=== PATIENT | female | born 1980 | race American Indian/Alaskan Native ===

== ENCOUNTER 2018-06-09 00:27 | Inpatient (IN) | payer MEDICAID ==
[2018-06-09] MEDS ORDERED: LACTATED RINGERS 1,000 ML ONE (02:13)
[2018-06-09] MEDS ORDERED: APRESOLINE IV ONE ×3 (02:30→04:05)
[2018-06-09] MEDS ORDERED: MAGNESIUM SULFATE 4GM/100ML 4 GM/100 ML BAG IV ONE (02:45)
[2018-06-09] MEDS ORDERED: NORMODYNE PO SCH (03:00)
[2018-06-09] MEDS: CELESTONE SOLUSPAN IM SCH (03:41)
--- NOTE | 2018-06-09 03:43 | Ultrasound Report ---
FINAL REPORT PROCEDURE: US OB BPP WO NON-STRESS TECHNIQUE: Sonographic evaluation for breathing, movement, tone, and amniotic flui d volume was performed. CPT 47571 HISTORY: well being COMPARISON: No prior studies are available for comparison. FINDINGS: Amniotic fluid volume: Normal-score 2. At least one vertical pocket > 2 cm or more in vertical axi s. breathing: Normal-score 2. movement: Normal-score 2. tone: Normal. Score: 8 of 8. IMPRESSION: Normal biophysical profile.
--- NOTE | 2018-06-09 03:45 | Ultrasound Report ---
FINAL REPORT PROCEDURE: US OB FOLLOW UP TECHNIQUE: Real-time limited sonographic examination was performed for evaluation of size, pos ition, heartbeat, fluid volume for each fetus with image documentation (1 or more fetuses). CPT 7681 5 HISTORY: STEVAN, presentation, gestational age COMPARISON: No prior studies are available for comparison. FINDINGS: MATERNAL Uterus: Within normal limits . Internal Os: Closed . FETUS IUP: Single living intrauterine . Position: Vertex. Placental position: Anterior, without previa . Amniotic fluid volume: Normal . Heart rate and rhythm: 143 BPM, Regular . anatomic survey: Not performed on this study. MEASUREMENTS BPD: 8.9 centimeter. HC: 30.9 centimeter. AC: 30.2 centimeter. FL: 6.6 centimeter. Mean Gestational Age (composite criteria): 34 weeks 5 days. Ratio biometry: Normal . Estimated Weight: 2418 grams. Interval growth: Appropriate . Estimated Due Date (earliest scan): 07/09/2018. IMPRESSION: 1. Single living intrauterine gestation at approximately 34 weeks 5 days. 2. EDC by US 07/09/2018.
--- NOTE | 2018-06-09 03:59 | History and Physical Report ---
History of Present Illness Date of examination: 06/09/18 Date of admission: 06/09/18 03:03 Chief complaint: Contractions History of present illness: 37 year old presented to L&D at 35 5/7 weeks complaining of contractions. While she was in triage, her BP was noted to be markedly elevated and she was noted to have irregular uterine contractions which palpate mild. Patient denies leaking of fluid or vaginal bleeding. Patient reports active movement. Patient states she receives care at [facility] and records are not available here in L&D. Will request records as soon as the office opens today. LMP uncertain. EDC 07/09/2018 per patient report (patient states this EDC is based on a first trimester US). EDC by US done in triage today is 07/16/18 (34 weeks, 5 days gestation). Patient states her has been complicated by AMA, chronic hypertension (for which she takes Labetalol 300 mg po BID, last dose at 9:45 PM) and superimposed preeclampsia. She states she sees [facility] and has been on LDA. Patient states she has had no other problems during this . She states she has a history of 2 previous vaginal deliveries (one at 37 weeks gestation and one at 36 weeks gestation, states she was induced at 36 weeks for severe preeclampsia). She states her daughter at 4 years of age from a seizure disorder. Past History Past Medical History: hypertension Past Surgical History: no surgical history [employer] History: denies: chlamydia, gonorrhea, hepatitis B, hepatitis C, herpes, HIV, syphilis Family/Genetic History: none Social history: lives with family, full code. denies: smoking, alcohol abuse, prescription drug abuse, IV drug use - Obstetrical History Expected Date of Delivery: 07/09/18 Actual Gestation: 35 Week(s) 5 Day(s) : 3 Para: 2 Hx # Term Pregnancies: 1 Number of Pregnancies: 2 Spontaneous Abortions: 0 Induced : 0 Number of Living Children: 1 Medications and Allergies Allergies Allergy/AdvReac Type Severity Reaction Status Date / Time chocolate flavor AdvReac Rash Verified 03/09/13 15:36 tomato [Tomato] AdvReac Swelling Verified 03/09/13 15:36 Home Medications Medication Instructions Recorded Confirmed Last Taken Type No Known Home Medications [No 11/18/13 11/18/13 Unknown History Reported Home Medications] Active Meds: Active Medications Betamethasone Acet/Betameth SodPhos (Celestone Soluspan) 12 mg IM Q24H FAHEEM Stop: 06/10/18 03:16 Last Admin: 06/09/18 03:41 Dose: 12 mg Documented by: Magnesium Sulfate (Magnesium Sulfate 40gm/1000ml) 40 gm in 1,000 mls @ 50 mls/hr IV DIRECT FAHEEM Lactated Ringer's (Lactated Ringers) 1,000 mls @ 125 mls/hr IV DIRECT FAHEEM Labetalol HCl (Normodyne) 300 mg PO BID [facility] Review of Systems Constitutional: no fatigue, no chronic headaches Eyes: no blurred vision Ears, nose, mouth and throat: no headache Cardiovascular: no chest pain, no edema, no lightheadedness, no shortness of breath Respiratory: no cough Gastrointestinal: no abdominal pain, no nausea, no vomiting Genitourinary: contractions, no genital sores - Vital Signs Vital signs: Vital Signs Pulse BP 71 134/74 06/09/18 00:58 06/09/18 00:58 Temp Pulse Resp BP Pulse Ox 98.1 F 81 169/96 06/09/18 02:05 06/09/18 03:46 06/09/18 03:46 - Physical Exam Cardiovascular: Regular rate Lungs: Positive: Clear to auscultation Abdomen: Positive: normal appearance, soft. Negative: distention, tenderness, guarding, rigidity Genitourinary (Female): Positive: normal external genitalia Vagina: Positive: normal moisture Cervix: Positive: other (Cervix FT/thick/posterior) Uterus: Positive: enlarged. Negative: tender Extremities: Positive: normal. Negative: tenderness, edema - Obstetrical FHR: category 2 Uterine Contraction Monitor Mode: External Cervical Dilatation: 0.5 Cervical Effacement Percentage: 10 station: -4 Uterine Contraction Pattern: Irregular Uterine Contraction Intensity: Mild Results All other labs normal. Assessment and Plan A: at 35 5/7 weeks gestation. contractions. Severe preeclampsia superimposed on chronic hypertension. Advanced maternal age. P: Admit. IV Hydralazine. Continue Labetalol 300 mg po BID. Magnesium Sulfate. Preeclamptic labs. Celestone IM. [facility] consult. US for BPP/STEVAN. Continous EFM. Consulted with Dr. Padilla re: this patient, elevated blood pressures, severe preeclampsia and interventions ordered/taken. Dr. Padilla states he agrees with ab ove plan.
[2018-06-09] MEDS: MAGNESIUM SULFATE 40GM/1000ML 40 GM/1,000 ML BAG IV SCH (05:04)
[2018-06-09 05:17] LABS: Bilirubin,Urine NEG (Negative); Blood,Urine NEG (Negative); Color,Urine Yellow (Yellow)
[2018-06-09 05:43] LABS: Alanine Aminotransferase 9 units/L (7-56); Albumin 3.3 g/dL (3.9-5); BUN/Creatinine Ratio 8; Blood Urea Nitrogen 5 mg/dL (7-17); Calcium 10.8 mg/dL (8.4-10.2); Hemolysis Index 20; Uric Acid 4.4 mg/dL (3.5-7.6)
[2018-06-09] MEDS: LACTATED RINGERS 1,000 ML IV SCH ×2 (06:15→19:15)
[2018-06-09 07:57] LABS: Basophils % (Auto) 0.5 % (0.0-1.8); Eosinophils % (Auto) 0.1 % (0.0-4.3); Hematocrit 28.9 % (30.3-42.9); Hemoglobin 9.7 gm/dl (10.1-14.3); Lymphocytes # (Auto) 0.9 K/mm3 (1.2-5.4); Lymphocytes % (Auto) 12.3 % (13.4-35.0); Mean Corpuscular HGB Conc 34 % (30-34); Mean Corpuscular Volume 81 fl (79-97); Monocytes # (Auto) 0.2 K/mm3 (0.0-0.8); Platelet Count 261 K/mm3 (140-440); Red Blood Count 3.59 M/mm3 (3.65-5.03); Red Cell Distribution Width 12.9 % (13.2-15.2)
--- NOTE | 2018-06-09 09:26 | Progress Note ---
Assessment and Plan - Patient Problems (1) 35 weeks gestation of Current Visit: Yes Status: Acute (2) Pre-eclampsia superimposed on chronic hypertension Current Visit: Yes Status: Acute Plan to address problem: Continue magnesium sulafte. Monitor Mg levels, urine output and DTRs. Monitor BP. Continue labetolol BID. 24-hr urine in progress. Next celestone dose tomorrow at 3 AM. Continue monitoring. [facility] and NICU consults. Will deliver if BP becomes unstable or for compromise. (3) contractions Current Visit: Yes Status: Acute Subjective - Subjective Date of service: 06/09/18 Principal diagnosis: SIUP at 35 weeks gestation with superimposed pre-eclampsia. Interval history: Patient is a 37 year old at 35 weeks gestation who presented to triage early this AM complaining of having irregular contractions. She denied any fluid leakage or bleeding. She reported good movement. Her BP was found to be elevated in the 160's/100's. She has a history of chronic HTN and has been co- managed with [facility]. She has been on labetolol 300 mg PO BID. She denied any headaches, visual changes or RUQ pain. She received IV hydralazine for BP control. Magnesium sulfate was started and celestone dose #1 given for FLM. tracing is CAT 1. Sonogram showed the baby to be vertex, BPP 8/8. Objective - Vital Signs Vital Signs: Vital Signs - 12hr 06/09/18 06/09/18 06/09/18 00:58 02:05 02:23 Temperature 98.1 F Pulse Rate 71 65 Respiratory Rate Blood Pressure 134/74 190/106 Blood Pressure [Right] O2 Sat by Pulse Oximetry 06/09/18 06/09/18 06/09/18 02:24 02:34 03:00 Temperature Pulse Rate 68 69 73 Respiratory Rate Blood Pressure 179/93 177/106 141/94 Blood Pressure [Right] O2 Sat by Pulse Oximetry 06/09/18 06/09/18 06/09/18 03:13 03:15 03:31 Temperature Pulse Rate 57 L 71 Respiratory Rate Blood Pressure 176/101 176/101 189/106 Blood Pressure [Right] O2 Sat by Pulse Oximetry 06/09/18 06/09/18 06/09/18 03:46 04:34 04:42 Temperature 98.2 F Pulse Rate 81 82 Respiratory 18 Rate Blood Pressure 169/96 138/90 Blood Pressure [Right] O2 Sat by Pulse Oximetry 06/09/18 06/09/18 06/09/18 05:48 06:02 06:17 Temperature Pulse Rate 74 75 78 Respiratory Rate Blood Pressure 117/61 117/63 113/60 Blood Pressure [Right] O2 Sat by Pulse Oximetry 06/09/18 06/09/18 06/09/18 06:32 06:47 07:02 Temperature Pulse Rate 76 75 76 Respiratory Rate Blood Pressure 107/54 108/57 103/56 Blood Pressure [Right] O2 Sat by Pulse Oximetry 06/09/18 06/09/18 06/09/18 07:17 07:19 07:20 Temperature 97.8 F Pulse Rate 83 85 82 Respiratory 18 Rate Blood Pressure 117/72 Blood Pressure 117/72 [Right] O2 Sat by Pulse 97 97 Oximetry 06/09/18 06/09/18 06/09/18 07:24 07:30 07:32 Temperature Pulse Rate 83 82 82 Respiratory Rate Blood Pressure 117/63 Blood Pressure [Right] O2 Sat by Pulse 97 96 Oximetry 06/09/18 06/09/18 06/09/18 07:34 07:37 07:39 Temperature Pulse Rate 85 83 84 Respiratory Rate Blood Pressure Blood Pressure [Right] O2 Sat by Pulse 96 94 96 Oximetry 06/09/18 06/09/18 06/09/18 07:44 07:47 07:49 Temperature Pulse Rate 83 81 84 Respiratory Rate Blood Pressure 112/61 Blood Pressure [Right] O2 Sat by Pulse 97 97 Oximetry 06/09/18 06/09/18 06/09/18 07:54 07:59 08:02 Temperature Pulse Rate 79 79 77 Respiratory Rate Blood Pressure 124/74 Blood Pressure [Right] O2 Sat by Pulse 98 96 Oximetry 06/09/18 06/09/18 06/09/18 08:04 08:10 08:17 Temperature Pulse Rate 84 82 79 Respiratory Rate Blood Pressure 124/74 Blood Pressure [Right] O2 Sat by Pulse 95 98 Oximetry 06/09/18 06/09/18 06/09/18 08:32 08:37 08:42 Temperature Pulse Rate 72 68 80 Respiratory Rate Blood Pressure 115/63 Blood Pressure [Right] O2 Sat by Pulse 97 97 Oximetry 06/09/18 06/09/18 06/09/18 08:47 08:52 08:54 Temperature Pulse Rate 76 76 83 Respiratory Rate Blood Pressure 129/73 Blood Pressure [Right] O2 Sat by Pulse 95 97 79 L Oximetry 06/09/18 06/09/18 06/09/18 08:57 08:59 09:02 Temperature Pulse Rate 73 76 80 Respiratory Rate Blood Pressure Blood Pressure [Right] O2 Sat by Pulse 94 94 95 Oximetry 06/09/18 06/09/18 06/09/18 09:03 09:06 09:10 Temperature Pulse Rate 78 80 80 Respiratory Rate Blood Pressure 119/64 Blood Pressure [Right] O2 Sat by Pulse 94 94 Oximetry 06/09/18 06/09/18 06/09/18 09:12 09:17 09:19 Temperature Pulse Rate 84 80 78 Respiratory Rate Blood Pressure 119/65 Blood Pressure [Right] O2 Sat by Pulse 93 93 94 Oximetry - Exam Cardiovascular: Normal S1, Normal S2 Lungs: Clear to auscultation Vulva: both: normal FHR: category 1 Uterine Contraction Monitor Mode: External Uterine Contraction Pattern: Irregular Uterine Contraction Intensity: Mild Deep Tendon Reflex Grade: Normal +2 - Labs Labs: Abnormal Labs 06/09/18 06/09/18 06/09/18 05:00 07:36 07:36 RBC 3.59 L Hgb 9.7 L Hct 28.9 L MCH 27 L RDW 12.9 L Lymph % (Auto) 12.3 L Lymph # 0.9 L Seg Neutrophils % 84.1 H Potassium 3.3 L Carbon Dioxide 21 L BUN 5 L Creatinine 0.6 L Calcium 10.8 H Magnesium 4.50 H Lactate Dehydrogenase 209 H Albumin 3.3 L Laboratory Results - last 24 hr 06/09/18 06/09/18 06/09/18 02:45 05:00 05:00 WBC RBC Hgb Hct MCV MCH MCHC RDW Plt Count Lymph % (Auto) [place] % (Auto) Eos % (Auto) Baso % (Auto) Lymph # [place] # Eos # Baso # Seg Neutrophils % Seg Neutrophils # Sodium 139 Potassium 3.3 L Chloride 103.9 Carbon Dioxide 21 L Anion Gap 17 BUN 5 L Creatinine 0.6 L Estimated GFR > 60 BUN/Creatinine Ratio 8 Glucose 73 Uric Acid 4.4 Calcium 10.8 H Magnesium Total Bilirubin 0.40 AST 23 ALT 9 Alkaline Phosphatase 127 Lactate Dehydrogenase 209 H Total Protein 6.5 Albumin 3.3 L Albumin/Globulin Ratio 1.0 Urine Color Yellow Urine Turbidity Clear Urine pH 6.0 Ur Specific [place] 1.010 Urine Protein 30 mg/dl Urine Glucose (UA) Neg Urine Ketones Neg Urine Blood Neg Urine Nitrite Neg Urine Bilirubin Neg Urine Urobilinogen 4.0 Ur Leukocyte Esterase Tr Urine WBC (Auto) 2.0 Urine RBC (Auto) 1.0 U Epithel Cells (Auto) 1.0 Blood Type O POSITIVE Antibody Screen Negative 06/09/18 06/09/18 07:36 07:36 WBC 7.3 RBC 3.59 L Hgb 9.7 L Hct 28.9 L MCV 81 MCH 27 L MCHC 34 RDW 12.9 L Plt Count 261 Lymph % (Auto) 12.3 L [place] % (Auto) 3.0 Eos % (Auto) 0.1 Baso % (Auto) 0.5 Lymph # 0.9 L [place] # 0.2 Eos # 0.0 Baso # 0.0 Seg Neutrophils % 84.1 H Seg Neutrophils # 6.2 Sodium Potassium Chloride Carbon Dioxide Anion Gap BUN Creatinine Estimated GFR BUN/Creatinine Ratio Glucose Uric Acid Calcium Magnesium 4.50 H Total Bilirubin AST ALT Alkaline Phosphatase Lactate Dehydrogenase Total Protein Albumin Albumin/Globulin Ratio Urine Color Urine Turbidity Urine pH Ur Specific [place] Urine Protein Urine Glucose (UA) Urine Ketones Urine Blood Urine Nitrite Urine Bilirubin Urine Urobilinogen Ur Leukocyte Esterase Urine WBC (Auto) Urine RBC (Auto) U Epithel Cells (Auto) Blood Type Antibody Screen - Results US- obstetric: report reviewed
[2018-06-09] MEDS: NORMODYNE PO SCH ×2 (09:36→22:00)
[2018-06-09] MEDS ORDERED: CELESTONE SOLUSPAN IM SCH (10:00)
--- NOTE | 2018-06-09 21:25 | Consultation ---
History of Present Illness Consult date: 06/09/18 Requesting physician: CELINA COMER Reason for consult: prematurity History of present illness: AMA. Chronic Hypertension with Superimposed Pre Eclampsia Documentation - Maternal Info Maternal Blood Type: O (+) positive - information: Height 5 ft 1 in Medications and Allergies Allergies Allergy/AdvReac Type Severity Reaction Status Date / Time chocolate flavor AdvReac Rash Verified 03/09/13 15:36 tomato [Tomato] AdvReac Swelling Verified 03/09/13 15:36 Home Medications Medication Instructions Recorded Confirmed Last Taken Type No Known Home Medications [No 03/09/13 03/09/13 Unknown History Reported Home Medications] Active Meds: Active Medications Betamethasone Acet/Betameth SodPhos (Celestone Soluspan) 12 mg IM Q24H FAHEEM Stop: 06/10/18 03:16 Last Admin: 06/09/18 03:41 Dose: 12 mg Documented by: Magnesium Sulfate (Magnesium Sulfate 40gm/1000ml) 40 gm in 1,000 mls @ 50 mls/hr IV DIRECT FAHEEM Last Admin: 06/09/18 05:04 Dose: 2 gm/hr, 50 mls/hr Documented by: Lactated Ringer's (Lactated Ringers) 1,000 mls @ 125 mls/hr IV DIRECT FAHEEM Last Admin: 06/09/18 19:15 Dose: 125 mls/hr Documented by: Labetalol HCl (Normodyne) 300 mg PO BID FAHEEM Last Admin: 06/09/18 09:36 Dose: 300 mg Documented by: Exam Vital Signs Pulse BP 71 134/74 06/09/18 00:58 06/09/18 00:58 Temp Pulse Resp BP Pulse Ox 97.9 F 90 18 118/69 96 06/09/18 19:26 06/09/18 21:20 06/09/18 19:26 06/09/18 21:17 06/09/18 21:20 Results - Laboratory Findings 06/09/18 07:36 06/09/18 05:00 Abnormal lab results 06/09/18 06/09/18 06/09/18 Range/Units 05:00 07:36 07:36 RBC 3.59 L (3.65-5.03) M/mm3 Hgb 9.7 L (10.1-14.3) gm/dl Hct 28.9 L (30.3-42.9) % MCH 27 L (28-32) pg RDW 12.9 L (13.2-15.2) % Lymph % (Auto) 12.3 L (13.4-35.0) % Lymph # 0.9 L (1.2-5.4) K/mm3 Seg Neutrophils % 84.1 H (40.0-70.0) % Potassium 3.3 L (3.6-5.0) mmol/L Carbon Dioxide 21 L (22-30) mmol/L BUN 5 L (7-17) mg/dL Creatinine 0.6 L (0.7-1.2) mg/dL Calcium 10.8 H (8.4-10.2) mg/dL Magnesium 4.50 H (1.7-2.3) mg/dL Lactate Dehydrogenase 209 H (91-180) units/L Albumin 3.3 L (3.9-5) g/dL 06/09/18 Range/Units 15:32 RBC (3.65-5.03) M/mm3 Hgb (10.1-14.3) gm/dl Hct (30.3-42.9) % MCH (28-32) pg RDW (13.2-15.2) % Lymph % (Auto) (13.4-35.0) % Lymph # (1.2-5.4) K/mm3 Seg Neutrophils % (40.0-70.0) % Potassium (3.6-5.0) mmol/L Carbon Dioxide (22-30) mmol/L BUN (7-17) mg/dL Creatinine (0.7-1.2) mg/dL Calcium (8.4-10.2) mg/dL Magnesium 6.30 H (1.7-2.3) mg/dL Lactate Dehydrogenase (91-180) units/L Albumin (3.9-5) g/dL Assessment and Plan Mother is 35 5/7 weeks today. Discussed with mother possibility of Respiratory Distress at and interventions. Also discussed possiblity of not requiring any assistance breathing at the time of and going to well nursery. Mother informed standards of care to keep warm and feed every 2-3 hours with supplementation due to risk for hypothermia and hypoglycemia in Late . Mother aware that if could not maintain body temperature and blood sugar would require NICU admission. Mother voiced understanding and agreement. Mother voiced that she had a 4 year old daughter that with a seizure disorder. She voices that no one else in the family has any type of seizure or Neurological disorder that she is aware of. She has a 17 yo son that is healthy. No maternal labs available other than blood type at the time of this note.
[2018-06-10] MEDS: MAGNESIUM SULFATE 40GM/1000ML 40 GM/1,000 ML BAG IV SCH (01:20)
[2018-06-10] MEDS: CELESTONE SOLUSPAN IM SCH (03:43)
[2018-06-10] MEDS: LACTATED RINGERS 1,000 ML IV SCH ×2 (07:45→11:02)
[2018-06-10 09:08] LABS: Benzodiazepines Screen,Urine TNR; Cannabinoid Screen,Urine TNR; Cocaine Screen,Urine TNR; Methadone Screen,Urine TNR; Opiate Screen,Urine TNR
--- NOTE | 2018-06-10 09:08 | Progress Note ---
Assessment and Plan - Patient Problems (1) 35 weeks gestation of Current Visit: Yes Status: Acute (2) Pre-eclampsia superimposed on chronic hypertension Current Visit: Yes Status: Acute Plan to address problem: Continue magnesium sulafte. Monitor Mg levels, urine output and DTRs. Monitor BP. Continue labetolol BID. 24-hr urine in progress. Celestone 2 doses completed. Continue monitoring. Patient is for C/section. (3) contractions Current Visit: Yes Status: Acute (4) Non-reassuring status Current Visit: Yes Status: Acute Plan to address problem: I discussed the above findings with the patient. I told her that she needs to be delivered for nonreassuring status. I counselled her for a c/section. Risks, benefits, and alternatives of the procedure were discussed in detail with the patient which included but not limited to the risk of infection, hemorrhage requiring blood transfusion, injury to the bowel or bladder and blood vessels. The patient expressed understanding, her questions were answered, and she gave informed consent. Anesthesia has been notified. Keep NPO. Patient is on all to OR (5) Anemia Current Visit: Yes Status: Acute Subjective - Subjective Date of service: 06/10/18 Principal diagnosis: SIUP at 35 weeks and 6 days gestation with superimposed pre-eclampsia. Interval history: Patient is a 37 year old at 35 weeks and 6 days gestation who was admitted yesterday for superimposed pre-eclampsia. On admission, her BP was found to be elevated in the 160's/100's. She has a history of chronic HTN and has been co- managed with [facility]. She has been on labetolol 300 mg PO BID. She denied any headaches, visual changes or RUQ pain. Sonogram showed the baby to be vertex, BPP 8/8. Toxemia labs were normal. She received IV hydralazine for BP control. Magnesium sulfate was started and celestone 2 doses for FLM completed. She also has irregular contractions. She denied any fluid leakage or bleeding. She reported good movement. Early this AM, she started to have occasional variables. She was placed in a left- sided position, IV bolus and O2 via face mask were given. The tracing did not improve and she is having late decelerations every 15-20 minutes. Objective - Vital Signs Vital Signs: Vital Signs - 12hr 06/09/18 06/09/18 06/09/18 21:05 21:07 21:10 Temperature Pulse Rate 91 H 89 92 H Respiratory Rate Blood Pressure O2 Sat by Pulse 94 94 94 Oximetry 06/09/18 06/09/18 06/09/18 21:12 21:15 21:17 Temperature Pulse Rate 91 H 92 H 92 H Respiratory Rate Blood Pressure 118/69 O2 Sat by Pulse 94 96 Oximetry 06/09/18 06/09/18 06/09/18 21:20 21:25 21:30 Temperature Pulse Rate 90 90 85 Respiratory Rate Blood Pressure O2 Sat by Pulse 96 96 96 Oximetry 06/09/18 06/09/18 06/09/18 21:35 21:40 21:44 Temperature Pulse Rate 88 87 86 Respiratory Rate Blood Pressure O2 Sat by Pulse 97 97 97 Oximetry 06/09/18 06/09/18 06/09/18 21:48 21:50 21:55 Temperature Pulse Rate 85 87 85 Respiratory Rate Blood Pressure 120/57 O2 Sat by Pulse 96 95 Oximetry 06/09/18 06/09/18 06/09/18 22:00 22:05 22:06 Temperature Pulse Rate 92 H 83 88 Respiratory Rate Blood Pressure 120/66 O2 Sat by Pulse 94 95 94 Oximetry 06/09/18 06/09/18 06/09/18 22:10 22:15 22:17 Temperature Pulse Rate 87 88 87 Respiratory Rate Blood Pressure 117/61 O2 Sat by Pulse 95 96 94 Oximetry 06/09/18 06/09/18 06/09/18 22:20 22:25 22:29 Temperature Pulse Rate 87 87 84 Respiratory Rate Blood Pressure O2 Sat by Pulse 95 96 94 Oximetry 06/09/18 06/09/18 06/09/18 22:30 22:35 22:40 Temperature Pulse Rate 85 91 H 86 Respiratory Rate Blood Pressure O2 Sat by Pulse 95 96 99 Oximetry 06/09/18 06/09/18 06/09/18 22:45 22:47 22:50 Temperature Pulse Rate 82 85 83 Respiratory Rate Blood Pressure 120/66 O2 Sat by Pulse 99 98 Oximetry 06/09/18 06/09/18 06/09/18 22:55 23:00 23:05 Temperature Pulse Rate 87 92 H 100 H Respiratory Rate Blood Pressure O2 Sat by Pulse 98 98 95 Oximetry 06/09/18 06/09/18 06/09/18 23:10 23:15 23:18 Temperature Pulse Rate 90 104 H 95 H Respiratory Rate Blood Pressure 127/71 O2 Sat by Pulse 98 98 Oximetry 06/09/18 06/09/18 06/09/18 23:20 23:25 23:26 Temperature Pulse Rate 92 H 95 H 102 H Respiratory Rate Blood Pressure O2 Sat by Pulse 98 100 82 L Oximetry 06/09/18 06/09/18 06/09/18 23:30 23:35 23:40 Temperature Pulse Rate 86 84 86 Respiratory Rate Blood Pressure O2 Sat by Pulse 98 99 99 Oximetry 06/09/18 06/09/18 06/09/18 23:45 23:48 23:50 Temperature Pulse Rate 88 89 90 Respiratory Rate Blood Pressure 125/60 O2 Sat by Pulse 99 97 Oximetry 06/09/18 06/10/18 06/10/18 23:55 00:00 00:05 Temperature Pulse Rate 86 82 90 Respiratory Rate Blood Pressure O2 Sat by Pulse 97 100 97 Oximetry 06/10/18 06/10/18 06/10/18 00:10 00:15 00:18 Temperature Pulse Rate 87 89 83 Respiratory Rate Blood Pressure 120/66 O2 Sat by Pulse 98 97 Oximetry 06/10/18 06/10/18 06/10/18 00:20 00:25 00:30 Temperature Pulse Rate 95 H 86 87 Respiratory Rate Blood Pressure O2 Sat by Pulse 97 98 99 Oximetry 06/10/18 06/10/18 06/10/18 00:35 00:40 00:45 Temperature Pulse Rate 95 H 95 H 101 H Respiratory Rate Blood Pressure O2 Sat by Pulse 98 99 97 Oximetry 06/10/18 06/10/18 06/10/18 00:47 00:50 00:55 Temperature Pulse Rate 90 91 H 89 Respiratory Rate Blood Pressure 119/69 O2 Sat by Pulse 98 97 Oximetry 06/10/18 06/10/18 06/10/18 01:00 01:05 01:10 Temperature Pulse Rate 91 H 90 90 Respiratory Rate Blood Pressure O2 Sat by Pulse 94 96 96 Oximetry 06/10/18 06/10/18 06/10/18 01:15 01:18 01:20 Temperature Pulse Rate 91 H 84 85 Respiratory Rate Blood Pressure 114/55 O2 Sat by Pulse 95 96 Oximetry 06/10/18 06/10/18 06/10/18 01:21 01:25 01:30 Temperature Pulse Rate 83 84 85 Respiratory Rate Blood Pressure O2 Sat by Pulse 94 92 99 Oximetry 06/10/18 06/10/18 06/10/18 01:35 01:41 01:46 Temperature Pulse Rate 92 H 91 H 80 Respiratory Rate Blood Pressure O2 Sat by Pulse 97 100 97 Oximetry 06/10/18 06/10/18 06/10/18 01:47 01:50 01:51 Temperature Pulse Rate 83 93 H 96 H Respiratory Rate Blood Pressure 106/56 O2 Sat by Pulse 91 96 Oximetry 06/10/18 06/10/18 06/10/18 01:56 02:01 02:06 Temperature Pulse Rate 84 83 82 Respiratory Rate Blood Pressure O2 Sat by Pulse 96 95 95 Oximetry 06/10/18 06/10/18 06/10/18 02:11 02:16 02:17 Temperature Pulse Rate 81 82 87 Respiratory Rate Blood Pressure O2 Sat by Pulse 95 95 93 Oximetry 06/10/18 06/10/18 06/10/18 02:18 02:21 02:26 Temperature Pulse Rate 92 H 86 84 Respiratory Rate Blood Pressure 113/55 O2 Sat by Pulse 96 95 Oximetry 06/10/18 06/10/18 06/10/18 02:31 02:32 02:36 Temperature Pulse Rate 85 90 86 Respiratory Rate Blood Pressure O2 Sat by Pulse 96 94 96 Oximetry 06/10/18 06/10/18 06/10/18 02:40 02:41 02:46 Temperature Pulse Rate 85 88 88 Respiratory Rate Blood Pressure O2 Sat by Pulse 94 94 94 Oximetry 06/10/18 06/10/18 06/10/18 02:47 02:51 02:56 Temperature Pulse Rate 88 88 86 Respiratory Rate Blood Pressure 115/56 O2 Sat by Pulse 94 93 Oximetry 06/10/18 06/10/18 06/10/18 03:01 03:06 03:11 Temperature Pulse Rate 87 83 82 Respiratory Rate Blood Pressure O2 Sat by Pulse 93 93 94 Oximetry 06/10/18 06/10/18 06/10/18 03:16 03:17 03:21 Temperature Pulse Rate 85 86 86 Respiratory Rate Blood Pressure 107/54 O2 Sat by Pulse 94 94 Oximetry 06/10/18 06/10/18 06/10/18 03:26 03:31 03:36 Temperature Pulse Rate 88 87 83 Respiratory Rate Blood Pressure O2 Sat by Pulse 94 94 94 Oximetry 06/10/18 06/10/18 06/10/18 03:41 03:46 03:47 Temperature Pulse Rate 95 H 72 92 H Respiratory Rate Blood Pressure O2 Sat by Pulse 97 96 94 Oximetry 06/10/18 06/10/18 06/10/18 03:48 03:51 03:56 Temperature Pulse Rate 81 82 86 Respiratory Rate Blood Pressure 107/57 O2 Sat by Pulse 97 97 Oximetry 06/10/18 06/10/18 06/10/18 04:01 04:06 04:11 Temperature Pulse Rate 84 88 88 Respiratory Rate Blood Pressure O2 Sat by Pulse 96 97 96 Oximetry 06/10/18 06/10/18 06/10/18 04:16 04:17 04:21 Temperature Pulse Rate 85 84 83 Respiratory Rate Blood Pressure 108/58 O2 Sat by Pulse 95 94 95 Oximetry 06/10/18 06/10/18 06/10/18 04:26 04:31 04:36 Temperature Pulse Rate 85 82 84 Respiratory Rate Blood Pressure O2 Sat by Pulse 96 96 95 Oximetry 06/10/18 06/10/18 06/10/18 04:41 04:46 04:47 Temperature Pulse Rate 91 H 85 90 Respiratory Rate Blood Pressure 96/50 O2 Sat by Pulse 94 95 94 Oximetry 06/10/18 06/10/18 06/10/18 04:51 04:53 04:56 Temperature Pulse Rate 86 84 85 Respiratory Rate Blood Pressure O2 Sat by Pulse 95 94 95 Oximetry 06/10/18 06/10/18 06/10/18 05:00 05:01 05:05 Temperature Pulse Rate 86 83 87 Respiratory Rate Blood Pressure O2 Sat by Pulse 94 95 94 Oximetry 06/10/18 06/10/18 06/10/18 05:06 05:11 05:13 Temperature Pulse Rate 85 87 85 Respiratory Rate Blood Pressure O2 Sat by Pulse 94 95 94 Oximetry 06/10/18 06/10/18 06/10/18 05:16 05:17 05:21 Temperature Pulse Rate 86 89 89 Respiratory Rate Blood Pressure 113/59 O2 Sat by Pulse 96 96 Oximetry 06/10/18 06/10/18 06/10/18 05:26 05:31 05:36 Temperature Pulse Rate 84 88 88 Respiratory Rate Blood Pressure O2 Sat by Pulse 95 95 95 Oximetry 06/10/18 06/10/18 06/10/18 05:38 05:41 05:44 Temperature Pulse Rate 88 86 85 Respiratory Rate Blood Pressure O2 Sat by Pulse 94 94 94 Oximetry 06/10/18 06/10/18 06/10/18 05:46 05:47 05:49 Temperature Pulse Rate 88 85 86 Respiratory Rate Blood Pressure 114/56 O2 Sat by Pulse 94 94 Oximetry 06/10/18 06/10/18 06/10/18 05:51 05:54 05:56 Temperature Pulse Rate 85 85 85 Respiratory Rate Blood Pressure O2 Sat by Pulse 95 94 95 Oximetry 06/10/18 06/10/18 06/10/18 06:01 06:06 06:09 Temperature Pulse Rate 88 88 92 H Respiratory Rate Blood Pressure O2 Sat by Pulse 95 95 94 Oximetry 06/10/18 06/10/18 06/10/18 06:11 06:14 06:16 Temperature Pulse Rate 86 86 89 Respiratory Rate Blood Pressure O2 Sat by Pulse 95 94 94 Oximetry 06/10/18 06/10/18 06/10/18 06:17 06:20 06:21 Temperature Pulse Rate 87 87 86 Respiratory Rate Blood Pressure 113/55 O2 Sat by Pulse 94 95 Oximetry 06/10/18 06/10/18 06/10/18 06:26 06:31 06:36 Temperature Pulse Rate 88 84 86 Respiratory Rate Blood Pressure O2 Sat by Pulse 94 96 95 Oximetry 06/10/18 06/10/18 06/10/18 06:40 06:41 06:46 Temperature Pulse Rate 90 94 H 89 Respiratory Rate Blood Pressure O2 Sat by Pulse 94 95 94 Oximetry 06/10/18 06/10/18 06/10/18 06:47 06:52 06:57 Temperature Pulse Rate 87 89 87 Respiratory Rate Blood Pressure 109/57 O2 Sat by Pulse 96 95 Oximetry 06/10/18 06/10/18 06/10/18 07:02 07:07 07:12 Temperature Pulse Rate 87 85 83 Respiratory Rate Blood Pressure O2 Sat by Pulse 95 95 95 Oximetry 06/10/18 06/10/18 06/10/18 07:17 07:22 07:27 Temperature Pulse Rate 88 85 87 Respiratory Rate Blood Pressure 107/55 O2 Sat by Pulse 94 95 95 Oximetry 06/10/18 06/10/18 06/10/18 07:32 07:40 07:47 Temperature Pulse Rate 87 100 H 91 H Respiratory Rate Blood Pressure 114/57 O2 Sat by Pulse 95 92 94 Oximetry 06/10/18 06/10/18 06/10/18 07:51 07:57 08:06 Temperature 98.3 F Pulse Rate 96 H 102 H Respiratory 16 Rate Blood Pressure O2 Sat by Pulse 96 96 Oximetry 06/10/18 06/10/18 06/10/18 08:17 08:21 08:36 Temperature Pulse Rate 94 H 98 H 95 H Respiratory Rate Blood Pressure 123/62 O2 Sat by Pulse 96 97 Oximetry 06/10/18 06/10/18 06/10/18 08:39 08:47 08:51 Temperature Pulse Rate 92 H 100 H 91 H Respiratory Rate Blood Pressure 130/67 O2 Sat by Pulse 94 93 96 Oximetry - Exam Cardiovascular: Normal S1, Normal S2 Lungs: Clear to auscultation Vulva: both: normal FHR: category 2 Uterine Contraction Monitor Mode: External Cervical Dilatation: 1 Cervical Effacement Percentage: 0 station: -3 Uterine Contraction Pattern: Irregular Uterine Contraction Intensity: Mild Deep Tendon Reflex Grade: Normal +2 - Labs Labs: Abnormal Labs 06/09/18 06/09/18 06/09/18 05:00 07:36 07:36 RBC 3.59 L Hgb 9.7 L Hct 28.9 L MCH 27 L RDW 12.9 L Lymph % (Auto) 12.3 L Lymph # 0.9 L Seg Neutrophils % 84.1 H Potassium 3.3 L Carbon Dioxide 21 L BUN 5 L Creatinine 0.6 L Calcium 10.8 H Magnesium 4.50 H Lactate Dehydrogenase 209 H Albumin 3.3 L 06/09/18 15:32 RBC Hgb Hct MCH RDW Lymph % (Auto) Lymph # Seg Neutrophils % Potassium Carbon Dioxide BUN Creatinine Calcium Magnesium 6.30 H Lactate Dehydrogenase Albumin Laboratory Results - last 24 hr 06/09/18 15:32 Magnesium 6.30 H - Results US- obstetric: report reviewed
[2018-06-10 09:09] LABS: Amphetamine Screen,Urine TNR; Total Volume,Urine 1580 ml
[2018-06-10] MEDS ORDERED: BICITRA PO ONE (09:23)
[2018-06-10] MEDS ORDERED: PEPCID IV ONE (09:23)
[2018-06-10] MEDS ORDERED: REGLAN IV ONE (09:23)
[2018-06-10] MEDS ORDERED: ANCEF/STERILE WATER 2 GM/20 ML 2 GM/20 ML SYRINGE IV NR (10:00)
[2018-06-10] MEDS ORDERED: LACTATED RINGERS 1,000 ML IV SCH ×2 (10:00→14:00)
[2018-06-10] MEDS ORDERED: PITOCin/NS 20 UNIT/1000ML DRIP 20 UNITS/1,000 ML BAG IV SCH ×2 (10:00→14:00)
[2018-06-10] MEDS: NORMODYNE PO SCH (11:04)
[2018-06-10] MEDS ORDERED: PHENERGAN PO PRN (11:04)
[2018-06-10] MEDS ORDERED: PHENERGAN PR PRN (11:04)
[2018-06-10] MEDS ORDERED: NARCAN 0.4 MG/1 ML IV PRN (11:04)
[2018-06-10] MEDS ORDERED: ZOFRAN IV PRN (11:04)
[2018-06-10 11:33] LABS: Amphetamine Screen,Urine PRESUMPTIVE NEGATIVE; Benzodiazepines Screen,Urine PRESUMPTIVE NEGATIVE; Cannabinoid Screen,Urine PRESUMPTIVE NEGATIVE; Cocaine Screen,Urine PRESUMPTIVE NEGATIVE; Methadone Screen,Urine PRESUMPTIVE NEGATIVE; Opiate Screen,Urine PRESUMPTIVE NEGATIVE
[2018-06-10] MEDS ORDERED: XYLOCAINE 2%/ EPI 1:200,000 INFILTRATI ONE (11:43)
[2018-06-10] MEDS ORDERED: ASTRAMORPH PF 10MG/10ML ONE (11:48)
[2018-06-10] MEDS ORDERED: SENSORCAINE/DEXTR 0.75-8.25% INFILTRATI ONE (11:49)
[2018-06-10] MEDS ORDERED: SODIUM CHLORIDE FLUSH SYRINGE 10 ML IV NR (12:00)
[2018-06-10] MEDS ORDERED: NEO SYNEPHRINE/NS Syringe(OR USE) IV ONE ×2 (12:10)
[2018-06-10] MEDS ORDERED: LACTATED RINGERS 1,000 ML ONE (12:15)
--- NOTE | 2018-06-10 12:28 | Anesthesia Day of Surgery ---
Anesthesia Day of Surgery - Day of Surgery Patient Examined: Yes Patient H&P Reviewed: Yes Patient is NPO: Yes Beta Blockers: Yes Cardiac Clearance: No Pulmonary Clearance: No Jonathan's Test: N/A
--- NOTE | 2018-06-10 13:43 | Operative Report ---
Operative Report Operative Report: PREOP Diagnosis 1. 35 6/7 weeks gestation 2. Category II heart tracings 3. Chronic hypertension superimposed preeclampsia with severe features Postop Diagnosis 1. 35 6/7 weeks gestation 2. Category II heart tracings 3. Chronic hypertension superimposed preeclampsia with severe features Procedure: Primary low-transverse section Findings 1. Viable male in the vertex position, weighing 5lb 8oz, 2494g APGARS pending 2. Normal uterus, bilateral ovaries and tubes Surgeon 1. Britt Espinoza MD Anesthesia: 1. Epidural I/O: EBL: 400ml UOP: 100ml, clear urine IVF 2000ml LR Specimens removed: 1. Placenta -to pathology Complications: none Disposition: Patient taken to recovery room in stable condition INDICATIONS: The patient is a 37yo at 35 6/7weeks that was managed for chronic hypertension with superimposed preeclampsia and noted to have non-reassurring heart tones. Therefore a recommendation with the patient for primary section was made and she agreed. The patient was consented and the risks including but not limited to bleeding, infections, injury to surrounding organs, potential injury to mother/infant were discussed. All questions were answered and informed consent signed. PROCEDURE: The patient was taken to the OR in stable condition. heart tones were confirmed in the 120s. Adequate anesthesia was achieved with epidural anesthesia. A eubanks catheter waspreviously placed. She wore SCDs for DVT prophylaxis. And received Ancef for infection prophylaxis. The patient was prepped and draped in the usual fashion and an additional time out was done. A Pfannestiel incision was made in the skin. The fascia was incised and the incision extended laterally. The superior and inferior aspect of the rectus muscle was dissected off of the fascia. Entry into the peritoneum was achieved. The incision was extended caudally. An Goran-O rectractor was placed intra- abdominally. A low-transverse incision made made in the uterus and extended laterally. An anterior placenta was noted. The head was brought to the hysterotomy and mouth bulb suctioned. The body was delivered. The cord was clamped x 2, cut and infant handed off to awaiting parking analyst staff. Cord gas was collected. The placenta was delivered intact and 20 units of IV Pitocin were added to LR fluids. The uterus was cleaned of all clots. The uterus was repaired with 0-Vicryl in a running, locked stitch and an imbricating layer of the same suture was used. The peritoneum and rectus was closed with 2-0 Vicryl. The fascia was closed with 0 Vicryl. The Subcutaneous layer reapproximated with 0 Vicryl. Skin closed with 4-0 Vicryl. The patient tolerated the procedure well. All counts were correct x 3. Urine was noted to be clear at close of case. I was present and scrubbed for the entire procedure. Of note, an ~1cm superficial skin abrasion was noted at the superior right corner of the Pfannesteil incision. The patient was taken to the recovery room in stable condition.
[2018-06-10] MEDS ORDERED: APRESOLINE IV PRN (13:44)
[2018-06-10] MEDS ORDERED: MAGNESIUM SULFATE 40GM/1000ML 40 GM/1,000 ML BAG IV SCH (14:00)
[2018-06-10] MEDS ORDERED: LANSINOH TP PRN (14:00)
[2018-06-10] MEDS ORDERED: TYLENOL PO PRN (14:00)
[2018-06-10] MEDS ORDERED: TUCKS PAD TP PRN (14:00)
[2018-06-10] MEDS ORDERED: MYLICON PO PRN (14:00)
[2018-06-10] MEDS ORDERED: MORPHINE IV PRN (14:00)
--- NOTE | 2018-06-10 14:46 | Anesthesia Consultation ---
Anesthesia Consult and Med Hx Date of service: 06/10/18 - Airway Anesthetic Teeth Evaluation: Good ROM Head & Neck: Adequate Mental/Hyoid Distance: Adequate Mallampati Class: Class II Intubation Access Assessment: Good - Pulmonary Exam CTA: Yes - Cardiac Exam Cardiac Exam: RRR - Pre-Operative Health Status ASA Pre-Surgery Classification: ASA3 Proposed Anesthetic Plan: Spinal - Pulmonary Hx Smoking: No Hx Asthma: No Hx Respiratory Symptoms: No SOB: No COPD: No Home Oxygen Therapy: No Hx Pneumonia: No Hx Sleep Apnea: No - Cardiovascular System Hx Hypertension: Yes (during ) Hx Coronary Artery Disease: No Hx Heart Attack/AMI: No Hx Angina: No Hx Percutaneous Transluminal Coronary Angioplasty (PTCA): No Hx Cardia Arrhythmia: No Hx Pacemaker: No Hx Internal Defibrillator: No Hx Valvular Heart Disease: No Hx Heart Murmur: No Hx Peripheral Vascular Disease: No - Central Nervous System Hx Neuromuscular Disorder: No Hx Seizures: No CVA: No Hx Back Pain: No Hx Psychiatric Problems: No - Gastrointestinal Hx Ulcer: No Hx Gastroesophageal Reflux Disease: No - Endocrine Hx Renal Disease: No Hx End Stage Renal Disease: No Hx Cirrhosis: No Hx Liver Disease: No Hx Insulin Dependent Diabetes: No Hx Non-Insulin Dependent Diabetes: No Hx Thyroid Disease: No Hx Hypothyroidism: No Hx Hyperthyroidism: No - Hematic Hx Anemia: Yes Hx Sickle Cell Disease: No - Other Systems Hx Alcohol Use: No Hx Substance Use: No Hx Cancer: No Hx Obesity: No
--- NOTE | 2018-06-10 14:47 | Post Anesthesia Evaluation ---
- Post Anesthesia Evaluation Patient Participated: Yes Airway Patent: Yes Stable Respiratory Function: Yes Nausea/Vomiting: No Temp > 96.8F: Yes Pain Manageable: Yes Adequeate Hydration: Yes Anesthesia Complications: No Block Receding Appropriately: Yes Patient on Ventilator: No
--- NOTE | 2018-06-10 14:48 | Progress Note ---
Subjective Date of service: 06/10/18 Principal diagnosis: SIUP at 35 weeks and 6 days gestation with superimposed pre-eclampsia. Objective - Constitutional Vitals: Vital Signs - 12hr 06/10/18 06/10/18 06/10/18 02:51 02:56 03:01 Temperature Pulse Rate 88 86 87 Respiratory Rate Blood Pressure O2 Sat by Pulse 94 93 93 Oximetry 06/10/18 06/10/18 06/10/18 03:06 03:11 03:16 Temperature Pulse Rate 83 82 85 Respiratory Rate Blood Pressure O2 Sat by Pulse 93 94 94 Oximetry 06/10/18 06/10/18 06/10/18 03:17 03:21 03:26 Temperature Pulse Rate 86 86 88 Respiratory Rate Blood Pressure 107/54 O2 Sat by Pulse 94 94 Oximetry 06/10/18 06/10/18 06/10/18 03:31 03:36 03:41 Temperature Pulse Rate 87 83 95 H Respiratory Rate Blood Pressure O2 Sat by Pulse 94 94 97 Oximetry 06/10/18 06/10/18 06/10/18 03:46 03:47 03:48 Temperature Pulse Rate 72 92 H 81 Respiratory Rate Blood Pressure 107/57 O2 Sat by Pulse 96 94 Oximetry 06/10/18 06/10/18 06/10/18 03:51 03:56 04:01 Temperature Pulse Rate 82 86 84 Respiratory Rate Blood Pressure O2 Sat by Pulse 97 97 96 Oximetry 06/10/18 06/10/18 06/10/18 04:06 04:11 04:16 Temperature Pulse Rate 88 88 85 Respiratory Rate Blood Pressure O2 Sat by Pulse 97 96 95 Oximetry 06/10/18 06/10/18 06/10/18 04:17 04:21 04:26 Temperature Pulse Rate 84 83 85 Respiratory Rate Blood Pressure 108/58 O2 Sat by Pulse 94 95 96 Oximetry 06/10/18 06/10/18 06/10/18 04:31 04:36 04:41 Temperature Pulse Rate 82 84 91 H Respiratory Rate Blood Pressure O2 Sat by Pulse 96 95 94 Oximetry 06/10/18 06/10/18 06/10/18 04:46 04:47 04:51 Temperature Pulse Rate 85 90 86 Respiratory Rate Blood Pressure 96/50 O2 Sat by Pulse 95 94 95 Oximetry 06/10/18 06/10/18 06/10/18 04:53 04:56 05:00 Temperature Pulse Rate 84 85 86 Respiratory Rate Blood Pressure O2 Sat by Pulse 94 95 94 Oximetry 06/10/18 06/10/18 06/10/18 05:01 05:05 05:06 Temperature Pulse Rate 83 87 85 Respiratory Rate Blood Pressure O2 Sat by Pulse 95 94 94 Oximetry 06/10/18 06/10/18 06/10/18 05:11 05:13 05:16 Temperature Pulse Rate 87 85 86 Respiratory Rate Blood Pressure O2 Sat by Pulse 95 94 96 Oximetry 06/10/18 06/10/18 06/10/18 05:17 05:21 05:26 Temperature Pulse Rate 89 89 84 Respiratory Rate Blood Pressure 113/59 O2 Sat by Pulse 96 95 Oximetry 06/10/18 06/10/18 06/10/18 05:31 05:36 05:38 Temperature Pulse Rate 88 88 88 Respiratory Rate Blood Pressure O2 Sat by Pulse 95 95 94 Oximetry 06/10/18 06/10/18 06/10/18 05:41 05:44 05:46 Temperature Pulse Rate 86 85 88 Respiratory Rate Blood Pressure O2 Sat by Pulse 94 94 94 Oximetry 06/10/18 06/10/18 06/10/18 05:47 05:49 05:51 Temperature Pulse Rate 85 86 85 Respiratory Rate Blood Pressure 114/56 O2 Sat by Pulse 94 95 Oximetry 06/10/18 06/10/18 06/10/18 05:54 05:56 06:01 Temperature Pulse Rate 85 85 88 Respiratory Rate Blood Pressure O2 Sat by Pulse 94 95 95 Oximetry 06/10/18 06/10/18 06/10/18 06:06 06:09 06:11 Temperature Pulse Rate 88 92 H 86 Respiratory Rate Blood Pressure O2 Sat by Pulse 95 94 95 Oximetry 06/10/18 06/10/18 06/10/18 06:14 06:16 06:17 Temperature Pulse Rate 86 89 87 Respiratory Rate Blood Pressure 113/55 O2 Sat by Pulse 94 94 Oximetry 06/10/18 06/10/18 06/10/18 06:20 06:21 06:26 Temperature Pulse Rate 87 86 88 Respiratory Rate Blood Pressure O2 Sat by Pulse 94 95 94 Oximetry 06/10/18 06/10/18 06/10/18 06:31 06:36 06:40 Temperature Pulse Rate 84 86 90 Respiratory Rate Blood Pressure O2 Sat by Pulse 96 95 94 Oximetry 06/10/18 06/10/18 06/10/18 06:41 06:46 06:47 Temperature Pulse Rate 94 H 89 87 Respiratory Rate Blood Pressure 109/57 O2 Sat by Pulse 95 94 Oximetry 06/10/18 06/10/18 06/10/18 06:52 06:57 07:02 Temperature Pulse Rate 89 87 87 Respiratory Rate Blood Pressure O2 Sat by Pulse 96 95 95 Oximetry 06/10/18 06/10/18 06/10/18 07:07 07:12 07:17 Temperature Pulse Rate 85 83 88 Respiratory Rate Blood Pressure 107/55 O2 Sat by Pulse 95 95 94 Oximetry 06/10/18 06/10/18 06/10/18 07:22 07:27 07:32 Temperature Pulse Rate 85 87 87 Respiratory Rate Blood Pressure O2 Sat by Pulse 95 95 95 Oximetry 06/10/18 06/10/18 06/10/18 07:40 07:47 07:51 Temperature Pulse Rate 100 H 91 H 96 H Respiratory Rate Blood Pressure 114/57 O2 Sat by Pulse 92 94 96 Oximetry 06/10/18 06/10/18 06/10/18 07:57 08:06 08:17 Temperature 98.3 F Pulse Rate 102 H 94 H Respiratory 16 Rate Blood Pressure 123/62 O2 Sat by Pulse 96 Oximetry 06/10/18 06/10/18 06/10/18 08:21 08:36 08:39 Temperature Pulse Rate 98 H 95 H 92 H Respiratory Rate Blood Pressure O2 Sat by Pulse 96 97 94 Oximetry 06/10/18 06/10/18 06/10/18 08:47 08:51 09:06 Temperature Pulse Rate 100 H 91 H 97 H Respiratory Rate Blood Pressure 130/67 O2 Sat by Pulse 93 96 97 Oximetry 06/10/18 06/10/18 06/10/18 09:18 09:21 09:26 Temperature Pulse Rate 92 H 92 H 92 H Respiratory Rate Blood Pressure 130/73 O2 Sat by Pulse 94 96 91 Oximetry 06/10/18 06/10/18 06/10/18 09:36 09:43 09:47 Temperature Pulse Rate 86 96 H 90 Respiratory Rate Blood Pressure 124/68 O2 Sat by Pulse 99 94 Oximetry 06/10/18 06/10/18 06/10/18 09:51 10:06 10:17 Temperature Pulse Rate 83 85 90 Respiratory Rate Blood Pressure 122/69 O2 Sat by Pulse 98 96 Oximetry 06/10/18 06/10/18 06/10/18 10:21 10:36 10:48 Temperature Pulse Rate 85 87 86 Respiratory Rate Blood Pressure 131/68 O2 Sat by Pulse 97 96 Oximetry 06/10/18 10:51 Temperature Pulse Rate 86 Respiratory Rate Blood Pressure O2 Sat by Pulse 97 Oximetry - Labs CBC & Chem 7: 06/09/18 07:36 06/09/18 05:00 Labs: Abnormal lab results 06/09/18 06/09/18 06/10/18 Range/Units 09:00 15:32 09:39 POC ABG pH (7.35-7.45) POC ABG pCO2 (35-45) POC ABG pO2 (80-105) Magnesium 6.30 H 6.70 H (1.7-2.3) mg/dL Ur Total Protein 24 Hr 237.00 H (2-200) mg/dL Urine Total Protein 15 H (5-11.8) mg/dL 06/10/18 Range/Units 13:06 POC ABG pH 7.302 L (7.35-7.45) POC ABG pCO2 45.4 H (35-45) POC ABG pO2 18 L (80-105) Magnesium (1.7-2.3) mg/dL Ur Total Protein 24 Hr (2-200) mg/dL Urine Total Protein (5-11.8) mg/dL
[2018-06-11 01:12] LABS: Hematocrit 23.7 % (30.3-42.9); Hemoglobin 7.8 gm/dl (10.1-14.3)
[2018-06-11] MEDS: PERCOCET 5/325 PO PRN ×2 (07:44→18:06)
[2018-06-11] MEDS ORDERED: FEOSOL PO SCH (10:00)
--- NOTE | 2018-06-11 10:07 | Progress Note ---
Assessment and Plan - Patient Problems (1) S/P primary low transverse Current Visit: Yes Status: Acute Plan to address problem: POD 1 - stable Continue routine postop orders Ambulation encouraged, as tolerated Abdominal binder ordered Anticipate discharge in 24 - 48 hours (2) Pre-eclampsia superimposed on chronic hypertension Current Visit: Yes Status: Acute Plan to address problem: Asymptomatic Magnesium sulfate therapy completed Blood pressures stable Continue antihypertensive therapy: Labetalol 300mg PO BID (3) Anemia Current Visit: Yes Status: Acute Qualifiers: Anemia type: iron deficiency Plan to address problem: Asymptomatic Continue iron therapy: frequency changed to Ferrous sulfate 325mg PO BID (initially 325mg PO QDAY) Subjective - Subjective Date of service: 06/11/18 Principal diagnosis: POD #1; s/p Primary LTCS; CHTN w/superimposed pre- eclampsia. Interval history: See H&P and OB Progress Notes Patient reports: appetite normal, pain well controlled, flatus, appetite poor, ambulating normally, other (hasn't voided post eubanks catheter removal; denies h eadache, visual disturbances or RUQ pain), no dizzy ambulation, no bowel movement, no nauseated Lilly: in NICU Objective - Vital Signs Latest vital signs: Vital Signs Temp Pulse Resp BP BP Pulse Ox 06/11/18 08:45 84 92 06/11/18 08:42 74 97 06/11/18 08:37 69 96 06/11/18 08:32 71 96 06/11/18 08:27 68 97 06/11/18 08:22 68 97 06/11/18 08:21 67 133/82 06/11/18 08:17 70 98 06/11/18 08:12 73 97 06/11/18 08:07 72 98 06/11/18 08:02 74 97 06/11/18 07:57 73 97 06/11/18 07:52 76 97 06/11/18 07:50 82 89 06/11/18 07:47 82 96 06/11/18 07:42 80 97 06/11/18 07:37 71 96 06/11/18 07:32 80 85 06/11/18 07:28 81 86 06/11/18 07:27 80 97 06/11/18 07:22 80 98 06/11/18 07:21 81 127/80 06/11/18 07:17 76 97 06/11/18 07:15 98.1 F 18 06/11/18 07:12 80 97 06/11/18 07:08 83 80 L 06/11/18 07:07 83 95 06/11/18 07:02 71 97 06/11/18 06:57 70 97 06/11/18 06:52 73 97 06/11/18 06:47 70 97 06/11/18 06:42 71 97 06/11/18 06:37 71 97 06/11/18 06:32 76 97 06/11/18 06:27 71 97 06/11/18 06:22 70 97 06/11/18 06:21 78 124/80 06/11/18 06:17 87 95 06/11/18 06:15 68 L 06/11/18 06:12 77 92 06/11/18 06:07 74 93 06/11/18 06:05 85 93 06/11/18 06:02 76 97 06/11/18 05:57 72 94 06/11/18 05:53 74 94 06/11/18 05:52 74 95 06/11/18 05:48 76 94 06/11/18 05:47 80 95 06/11/18 05:42 75 98 06/11/18 05:37 72 97 06/11/18 05:32 75 98 06/11/18 05:27 74 95 06/11/18 05:22 72 94 06/11/18 05:21 70 120/69 06/11/18 05:17 75 94 06/11/18 05:13 78 94 06/11/18 05:12 75 95 06/11/18 05:07 70 95 06/11/18 05:04 75 94 06/11/18 05:02 80 93 06/11/18 04:58 76 94 06/11/18 04:57 77 93 06/11/18 04:52 71 93 06/11/18 04:49 81 94 06/11/18 04:47 77 95 06/11/18 04:42 81 95 06/11/18 04:39 75 94 06/11/18 04:37 81 95 06/11/18 04:32 84 93 06/11/18 04:31 74 85 06/11/18 04:27 77 95 06/11/18 04:25 75 94 06/11/18 04:22 68 95 06/11/18 04:21 71 117/67 06/11/18 04:18 72 94 02 04:17 71 94 06/11/18 04:12 70 96 06/11/18 04:07 72 96 06/11/18 04:02 69 64 L 06/11/18 04:01 72 77 L 06/11/18 03:57 75 100 06/11/18 03:52 72 100 06/11/18 03:47 74 95 06/11/18 03:42 69 92 06/11/18 03:37 71 92 06/11/18 03:32 74 92 06/11/18 03:27 70 93 06/11/18 03:25 69 94 06/11/18 03:22 76 94 06/11/18 03:21 75 115/76 06/11/18 03:17 72 93 06/11/18 03:12 71 94 06/11/18 03:07 69 93 06/11/18 03:02 69 93 06/11/18 02:57 71 93 06/11/18 02:52 70 94 06/11/18 02:50 68 94 06/11/18 02:47 69 94 06/11/18 02:45 69 94 06/11/18 02:42 69 95 06/11/18 02:37 70 95 06/11/18 02:32 67 96 06/11/18 02:27 70 96 06/11/18 02:22 78 96 06/11/18 02:21 81 128/79 06/11/18 02:17 70 93 06/11/18 02:16 69 94 06/11/18 02:12 65 96 06/11/18 02:07 69 97 06/11/18 02:02 65 96 06/11/18 01:57 86 95 06/11/18 01:52 66 92 06/11/18 01:50 67 94 06/11/18 01:47 69 95 06/11/18 01:42 69 96 06/11/18 01:37 72 96 06/11/18 01:32 68 96 06/11/18 01:27 67 96 06/11/18 01:22 74 96 06/11/18 01:21 71 135/74 06/11/18 01:20 94 06/11/18 01:17 69 94 06/11/18 01:12 75 91 06/11/18 01:07 67 93 06/11/18 01:03 70 94 06/11/18 01:02 68 95 06/11/18 00:57 70 96 06/11/18 00:52 67 97 06/11/18 00:47 70 96 06/11/18 00:42 74 96 06/11/18 00:37 69 96 06/11/18 00:32 69 97 06/11/18 00:27 69 96 06/11/18 00:22 86 93 06/11/18 00:21 65 126/74 06/11/18 00:17 70 95 06/11/18 00:14 76 94 06/11/18 00:12 74 96 06/11/18 00:07 74 95 06/11/18 00:02 89 95 06/10/18 23:56 82 96 06/10/18 23:51 82 96 06/10/18 23:46 72 97 06/10/18 23:41 81 98 06/10/18 23:36 81 97 06/10/18 23:31 76 97 06/10/18 23:26 80 98 06/10/18 23:21 71 127/74 96 06/10/18 23:16 68 96 06/10/18 23:11 69 97 06/10/18 23:06 69 96 06/10/18 23:01 71 96 06/10/18 22:56 69 96 06/10/18 22:51 72 97 06/10/18 22:46 84 96 06/10/18 22:41 72 97 06/10/18 22:36 72 97 06/10/18 22:31 71 97 06/10/18 22:26 70 98 06/10/18 22:21 71 133/75 97 06/10/18 22:16 72 97 06/10/18 22:11 73 97 06/10/18 22:06 76 97 06/10/18 22:01 70 98 06/10/18 21:56 67 97 06/10/18 21:53 77 87 06/10/18 21:51 67 97 06/10/18 21:46 75 96 06/10/18 21:41 67 97 06/10/18 21:36 68 97 06/10/18 21:31 76 96 06/10/18 21:26 71 98 06/10/18 21:21 98.4 F 68 18 133/72 133/72 98 06/10/18 21:16 68 96 06/10/18 21:11 69 96 06/10/18 20:21 66 137/82 06/10/18 19:21 70 139/70 06/10/18 18:21 74 128/71 06/10/18 17:21 67 143/78 06/10/18 16:21 79 141/89 06/10/18 15:21 65 151/80 06/10/18 15:15 98.1 F 71 12 118/76 100 06/10/18 15:00 69 16 127/78 100 06/10/18 14:45 70 18 138/74 100 06/10/18 14:30 72 20 128/70 100 06/10/18 14:15 76 14 124/82 100 06/10/18 14:00 69 19 138/81 100 06/10/18 13:55 73 14 131/81 100 06/10/18 13:50 78 16 132/70 100 06/10/18 13:43 97.3 F L 78 16 132/70 100 06/10/18 10:51 86 97 06/10/18 10:48 86 131/68 06/10/18 10:36 87 96 06/10/18 10:21 85 97 06/10/18 10:17 90 122/69 Intake and Output 06/10/18 06/11/18 06/11/18 23:59 07:59 15:59 Output Total 500 900 Balance -500 -900 Output: Urine 500 900 Indwelling Catheter 500 900 Other: Total, Output Amount 500 400 - Exam Lungs: Present: Clear to auscultation Abdomen: Present: normal appearance, soft Vulva: both: normal Uterus: Present: normal, firm, fundal height at umbilicus Extremities: Present: normal Incision: Present: normal, dry, intact, dressed Comments: scant lochia - Labs Labs: Abnormal lab results 06/09/18 06/10/18 06/10/18 Range/Units 09:00 09:39 13:06 Hgb (10.1-14.3) gm/dl Hct (30.3-42.9) % POC ABG pH 7.302 L (7.35-7.45) POC ABG pCO2 45.4 H (35-45) POC ABG pO2 18 L (80-105) Magnesium 6.70 H (1.7-2.3) mg/dL Ur Total Protein 24 Hr 237.00 H (2-200) mg/dL Urine Total Protein 15 H (5-11.8) mg/dL 06/11/18 06/11/18 06/11/18 Range/Units 00:26 00:26 06:05 Hgb 7.8 L (10.1-14.3) gm/dl Hct 23.7 L (30.3-42.9) % POC ABG pH (7.35-7.45) POC ABG pCO2 (35-45) POC ABG pO2 (80-105) Magnesium 6.90 H 6.10 H (1.7-2.3) mg/dL Ur Total Protein 24 Hr (2-200) mg/dL Urine Total Protein (5-11.8) mg/dL
[2018-06-11] MEDS: NORMODYNE PO SCH ×2 (10:41→23:58)
[2018-06-11] MEDS: FEOSOL PO SCH ×2 (10:42→23:58)
[2018-06-12] MEDS: PERCOCET 5/325 PO PRN ×2 (06:05→18:04)
--- NOTE | 2018-06-12 10:38 | Progress Note ---
Assessment and Plan (1) S/P primary low transverse Current Visit: Yes Status: Acute Plan to address problem: POD 2- stable Continue routine postop orders Ambulation encouraged, as tolerated Pressure dressing removed Anticipate discharge in 24 - 48 hours (2) Pre-eclampsia superimposed on chronic hypertension Current Visit: Yes Status: Acute Plan to address problem: Asymptomatic S/P Magnesium sulfate therapy Blood pressures stable Continue antihypertensive therapy: Labetalol 300mg PO BID (3) Anemia Current Visit: Yes Status: Acute Qualifiers: Anemia type: iron deficiency Plan to address problem: Asymptomatic Continue iron therapy InFed 100mg IM x1 dose Subjective - Subjective Date of service: 06/12/18 Principal diagnosis: POD #2; s/p Primary LTCS; CHTN w/superimposed pre- eclampsia. Patient reports: appetite normal, voiding normally, pain well controlled, flatus, ambulating normally, no bowel movement : doing well Objective - Vital Signs Latest vital signs: Vital Signs Temp Pulse Resp BP BP Pulse Ox 06/12/18 08:30 98.2 F 76 20 124/69 06/12/18 06:05 18 06/11/18 23:58 80 136/70 06/11/18 23:56 98.3 F 80 136/70 06/11/18 12:26 98.0 F 72 20 129/76 98 06/11/18 10:41 160/96 Intake and Output 06/11/18 06/12/18 06/12/18 23:59 07:59 15:59 Intake Total 960 360 240 Balance 960 360 240 Intake: Oral 600 360 240 Intake, Free Water 360 Other: Total, Intake Amount 240 120 240 # Voids Indwelling Catheter 2 Void 1 1 1 - Exam Breasts: Present: normal Cardiovascular: Present: Regular rate, Normal S1, Normal S2, No murmurs Lungs: Present: Clear to auscultation, Normal air movement Abdomen: Present: normal appearance, tenderness (as expected post-op), normal bowel sounds. Absent: distention Vulva: both: normal Uterus: Present: firm, fundal height below umbilicus (-1) Extremities: Present: normal Deep Tendon Reflex Grade: Normal +2 Incision: Present: normal, dry, intact (Pressure dressing removed, LTI clsoed with SQ sutures and steri strips, no drainage. Reviewed incision care ) - Labs Labs: Abnormal lab results 06/11/18 06/11/18 Range/Units 13:30 17:41 Magnesium 4.00 H 3.50 H (1.7-2.3) mg/dL
--- NOTE | 2018-06-12 10:42 | Discharge Summary ---
Providers - Providers Date of Admission: 06/09/18 03:03 Date of discharge: 06/13/18 Attending physician: CHANDIRKA STOCK MD 06/09/18 07:00 Consult to Physician [CONS] Routine Comment: Consulting Provider: EITAN WRIGHT Physician Instructions: Reason For Exam: preeclampsia; 06/09/18 15:08 Consult to Physician [CONS] Routine Comment: Consulting Provider: ELDA TOVAR Physician Instructions: Reason For Exam: , hx CHTN, mag sulfate, BMZ Primary care physician: CHANDRIKA STOCK MD Hospitalization Reason for admission: active labor, IUP - (37weeks) Delivery: Procedure details: See H&P and delivery note Incision: normal (LTI, closed with SQ sutures, steri strips. ), dry, intact complications: none Discharge diagnosis: IUP at term delivered Condition at discharge: Good Disposition: DC-01 TO HOME OR SELFCARE Plan - Discharge Medications Prescriptions: Ferrous Sulfate [Feosol 325 MG tab] 325 mg PO QDAY 30 Days #30 tablet oxyCODONE /ACETAMINOPHEN [Percocet 5/325] 1 tab PO Q4HR PRN 14 Days #30 tab PRN Reason: Pain , Severe (7-10) - Provider Discharge Summary Activity: routine, no sex for 6 weeks, no heavy lifting 4 weeks, no strenuous exercise Diet: routine Instructions: routine Additional instructions: [] Smoking cessation referral if applicable(refer to patient education folder for contact #) [] Refer to [facility] Booklet Call your doctor immediately for: * Fever > 100.5 * Heavy vaginal bleeding ( >1 pad per hour) * Severe persistent headache * Shortness of breath * Reddened, hot, painful area to leg or breast * Drainage or odor from incision. * Keep incision clean and dry at all times and follow doctor's instructions regarding bathing/showering - Follow up plan Follow up: CHANDRIKA STOCK MD [Primary Care Provider] - 7 Days
[2018-06-12] MEDS: NORMODYNE PO SCH ×2 (12:32→23:00)
[2018-06-12] MEDS: FEOSOL PO SCH ×2 (12:33→23:00)
[2018-06-13] MEDS: PERCOCET 5/325 PO PRN ×3 (05:47→11:36)
[2018-06-13] MEDS: INFED IM ONE (05:59)
[2018-06-13] MEDS: FEOSOL PO SCH (11:36)
[2018-06-13] MEDS: NORMODYNE PO SCH (11:36)
[2018-06-13 17:08] VITALS: BP 159/71
== END 2018-06-13 18:00 | disposition home or self-care (01) | DRG 765 ==
LOC: TRG 00:27 → OBSVTOIN 03:03 → LD 03:03 → OB 06-11 09:20
PROVIDERS: ADMIT Obstetrics & Gynecology; ATTEND Obstetrics & Gynecology
PROC: 10D00Z1 Extraction of Products of Conception, Low, Open Approach (ICD-10-PCS; principal; 2018-06-10)
PROC: 4A033R1 Measurement of Arterial Saturation, Peripheral, Percutaneous Approach (ICD-10-PCS; 2018-06-10)
DX: O11.4 Pre-existing hypertension with pre-eclampsia, complicating childbirth (principal); O60.14X0 Preterm labor third trimester with preterm delivery third trimester, not applicable or unspecified; O76 Abnormality in fetal heart rate and rhythm complicating labor and delivery; D50.9 Iron deficiency anemia, unspecified; O10.02 Pre-existing essential hypertension complicating childbirth; O99.02 Anemia complicating childbirth; Z3A.35 35 weeks gestation of pregnancy; Z37.0 Single live birth; Z91.018 Allergy to other foods; Z91.048 Other nonmedicinal substance allergy status
CPT/HCPCS: 36415; 76816; 76819; 80053; 80307; 81001; 82803; 83615; 83735; 84156; 84550; 85014; 85018; 85025; 86850; 86900; 86901; 88307; G0378; J0360; J0690; J0702; J1750; J2274; J2370; J2590; J2765; J3475; J7120